=== PATIENT | male | born 1935 | race Caucasian/White ===

== ENCOUNTER 2021-01-04 07:57 | Emergency (ER) | payer OTHER, MEDICARE ==
[~2021-01-04] VITALS: Ht 170.2 cm; Wt 67.7 kg
[~2021-01-04 07:57] MED LIST: ATOR40TA14 PO; AZIT250T83 PO; FINA5TAB11 PO; FLO0.4C PO; FLUT16SP2 BOTHNARES; GABA-530 PO; LIPA1CAP18 PO; RIFA300C4 PO; TRAM50TA2 PO; [UNRECOGNIZED DRUG - CODE] PO
[2021-01-04] MEDS ORDERED: normal saline 1000ML IV soln IVB ONE (08:40)
[2021-01-04 09:41] VITALS: BP 163/83
[2021-01-04 10:06] LABS: BASOPHILS # (AUTO) 0.1 X10'3 (0-0.2); BASOPHILS % (AUTO) 0.7 % (0-1); EOSINOPHILS # (AUTO) 0.4 X10'3 (0-0.9); EOSINOPHILS % (AUTO) 3.3 % (0-6); HEMATOCRIT 38.2 % (42.0-52.0); HEMOGLOBIN 12.7 g/dl (14.0-17.9); LYMPHOCYTES # (AUTO) 1.5 X10'3 (1.1-4.8); LYMPHOCYTES % (AUTO) 13.6 % (21-51); MEAN CORPUSCULAR HEMOGLOBIN 29.8 PG (27.0-31.0); MEAN CORPUSCULAR HGB CONC 33.4 g/dL (33.0-36.5); MEAN CORPUSCULAR VOLUME 89.2 FL (78-98); MEAN PLATELET VOLUME 8.5 FL (7.4-10.4); MONOCYTES # (AUTO) 0.9 X10'3 (0-0.9); MONOCYTES % (AUTO) 8.3 % (2-12); NEUTROPHILS % (AUTO) 74.1 % (42-75); PLATELET COUNT 258 X10'3 (140-440); RED BLOOD COUNT 4.28 X10'6 (4.70-6.10); RED CELL DISTRIBUTION WIDTH 15.3 % (11.5-14.5); WHITE BLOOD COUNT 10.8 X10'3 (4.5-11.0)
[2021-01-04 10:22] LABS: ALANINE AMINOTRANSFERASE 23 U/L (12-78); ALBUMIN 3.5 G/DL (3.4-5.0); ALBUMIN/GLOBULIN RATIO 0.8 (1.1-1.5); ALKALINE PHOSPHATASE 104 IU/L (46-116); ANION GAP 11 (8-16); ASPARTATE AMINO TRANSFERASE 18 U/L (10-37); BILIRUBIN,TOTAL 0.3 MG/DL (0.1-1.0); BLOOD UREA NITROGEN 46 MG/DL (7-18); BUN/CREATININE RATIO 20.4 (5.4-32.0); CALCIUM 9.1 MG/DL (8.5-10.1); CHLORIDE 106 MMOL/L (99-107); CREATININE 2.25 MG/DL (0.60-1.10); GLUCOSE 119 MG/DL (70-104); LIPASE 1155 U/L (73-393); SODIUM 141 MMOL/L (135-145); TOTAL CARBON DIOXIDE 23.6 MMOL/L (24-32); TOTAL PROTEIN 8.1 G/DL (6.4-8.2); eGFR 28 ML/MIN
[2021-01-04] MEDS ORDERED: insulin regular, human U-100 3ml vial - multi-dose IV ONE (10:40)
[2021-01-04] MEDS ORDERED: sodium polystyrene sulfonate 15gm/60ml oral suspension PO ONE (10:40)
[2021-01-04] MEDS ORDERED: dextrose 50%-water 50ml dispensing syringe IV ONE (10:40)
== END 2021-01-04 12:56 | disposition left against medical advice (07) ==
LOC: ER 07:58
DX: K85.90 Acute pancreatitis without necrosis or infection, unspecified (principal); E78.00 Pure hypercholesterolemia, unspecified; N40.0 Benign prostatic hyperplasia without lower urinary tract symptoms; Z86.718 Personal history of other venous thrombosis and embolism; Z79.899 Other long term (current) drug therapy
CPT/HCPCS: 36415; 71045; 74176; 80053; 83605; 83690; 85025; 85610; 87040; 96365; 96374; 96375; 99285; J1815